=== PATIENT | female | born 1995 | race Caucasian/White ===

== ENCOUNTER 2023-10-09 | Emergency (ER) | payer OTHER ==
[~2023-10-09] VITALS: Ht 165.1 cm; Wt 54.5 kg
[2023-10-09 00:03] VITALS: BP 111/93; PULSE 102; RESP 16; TEMP 98
[2023-10-09] MEDS: AMOX TR/POT CLAV 875 MG/125 MG TABLET PO ONE (00:57)
[2023-10-09] MEDS: PredniSONE 20 MG TABLET PO ONE (00:57)
[2023-10-09] MEDS ORDERED: PRED-554 PO (01:05)
[2023-10-09] MEDS ORDERED: AMOX1TAB16 PO (01:05)
[2023-10-09] MEDS: PERTUSS(ACELL),DIPH,TET VAC/PF 0.5 ML SYRINGE IM. ONE (01:11)
[2023-10-09] MEDS: RABIES VACCINE, HUMAN DIPLOID/PF 2.5 UNITS/ML VIAL IM. ONE (01:17)
[2023-10-09] MEDS: RABIES IMMUNE GLOBULIN/PF 150 UNIT/ML 10 ML VIAL IM. ONE (01:20)
[2023-10-09] MEDS: BACITRACIN 0.9 GM PACKET OINTMENT TP ONE (01:42)
== END 2023-10-09 02:06 | disposition home or self-care (01) ==
LOC: EMS
DX: S61.452A Open bite of left hand, initial encounter (principal); Z98.890 Other specified postprocedural states; W55.01XA Bitten by cat, initial encounter; Y93.89 Activity, other specified; Y92.89 Other specified places as the place of occurrence of the external cause; Y99.8 Other external cause status
CPT/HCPCS: 99284; 90675; 90375; 90715; 90471; 90472; 96372; J7512